=== PATIENT | male | born 1955 | race Caucasian/White ===

== ENCOUNTER 2024-08-18 23:36 | Emergency (ER) | payer MEDICARE ==
[~2024-08-18] VITALS: Ht 180.3 cm; Wt 115.0 kg
[2024-08-18 23:40] VITALS: O2SAT 98
[2024-08-19] VITALS: TEMP 36.50292
[2024-08-19 00:36] LABS: MEAN CORPUSCULAR HGB CONC 34.3 g/dL (31.0-37.0)
[2024-08-19] MEDS: SODIUM CHLORIDE 0.9% 1,000 ML IV ONE (00:37)
[2024-08-19 00:39] LABS: BASOPHILS % 0.2 % (0.0-2.0); HEMATOCRIT. 41.2 % (42.0-52.0); HEMOGLOBIN. 14.1 g/dL (14.0-18.0); LYMPHOCYTES % 16.8 % (20.0-50.0); MEAN CORPUSCULAR HEMOGLOBIN 32.5 pg (28.0-32.0); MEAN CORPUSCULAR VOLUME 94.9 fL (80.0-94.0); MEAN PLATELET VOLUME 7.6 fl (7.4-10.4); MONOCYTES % 6.4 % (2.0-8.0); NEUTROPHILS % 75.6 % (40.0-76.0); PLATELET 195 x1000/uL (130-400); RED BLOOD CELL COUNT 4.34 mill/uL (4.7-6.1); WHITE BLOOD COUNT 6.9 x1000/uL (4.5-11.0)
[2024-08-19 00:43] LABS: CALCIUM 9.4 mg/dL (8.7-10.4)
[2024-08-19 00:48] LABS: CREATININE 1.4 mg/dL (0.6-1.3)
[2024-08-19 02:30] VITALS: BP 148/87; PULSE 72; RESP 18; O2SAT 97
== END 2024-08-19 02:30 | disposition home or self-care (01) ==
LOC: ER 23:36
DX: R55 Syncope and collapse (principal); F41.9 Anxiety disorder, unspecified; F32.9 Major depressive disorder, single episode, unspecified
CPT/HCPCS: 99285; 96360; 71045; 96361; 80048; 85025; 36415; 93005; J7030; 99284